=== PATIENT | male | born 1960 | race Caucasian/White ===

== ENCOUNTER 2016-10-21 06:11 | Inpatient (IN) ==
--- NOTE | 2016-10-14 09:09 | EKG Report ---
Stationary ECG Study [facility] Test Date: 10/14/2016 9:09 AM Pat Name: CONSTANCE TATUM Department: Room: Gender: M Enrollment Representative: 10-21-16 : 1960 Requested by: Jamie Munson Order Number: [id number] Reading MD: PAULINE BUNDY Intervals [place] Rate: 54 P: 40 [place]: 182 QRS: 70 QRSD: 95 T: 23 QT: 431 QTc: 418 Interpretive Statements SINUS BRADYCARDIA POSSIBLE INFERIOR MYOCARDIAL INFARCTION, PROBABLY OLD Electronically Signed On 10-18-16 21:43:54 CDT by PAULINE BUNDY [email or web address]
[2016-10-14 09:22] LABS: Basophils % 0.6 % (0.0-0.8); Eosinophils # 0.3 10*3/uL (0.0-0.87); Eosinophils % 4.1 % (0.00-10.9); Hematocrit 41.3 VOL% (42.0-52.0); Hemoglobin 14.5 GM/DL (14.0-18.0); Immature Granulocytes % 0.4 %; Immature Granulocytes Absolute 0.03 #; Lymphocytes # 1.8 10*3/uL (1.4-4.0); Lymphocytes % 26.2 % (21.2-54.2); Mean Corpuscular HGB Conc 35.1 GM/DL (32-36); Mean Corpuscular Hemoglobin 32 PG (27-34); Mean Corpuscular Volume 92.2 FL (87-102); Mean Platelet Volume 8.7 FL (9.6-12.0); Monocytes # 0.9 10*3/uL (0.11-0.8); Monocytes % 12.4 % (1.7-12.7); Neutrophils # 3.9 10*3/uL (1.4-7.4); Neutrophils % 56.3 % (38.7-73.9); Platelet Count 226 T/CUMM (130-400); Red Blood Count 4.48 MC/CUMM (3.8-5.5); Red Cell Distribution Width 12.3 % (9.3-17.3); White Blood Count 6.9 T/CUMM (4-12)
[2016-10-14 09:27] LABS: Apearance,Urine CLEAR (Clear); Bilirubin,Urine Negative (Negative); Blood, Urine Negative (Negative); Glucose,Urine (UA) Negative (Negative); Ketones,Urine Negative (Negative); Mucus,Urine Moderate /LPF (Occasional); Nitrite,Urine Negative (Negative); Protein,Urine Negative; RBC,Urine 1 /HPF (0-4); Urine Color Yellow (Yellow); Urine Specific Gravity 1.019 (1.001-1.035); Urine Urobilinogen < 2.0 EU/DL (0.2-1.0); WBC,Urine 1 /HPF (0-6)
[2016-10-14 09:58] LABS: Calcium 8.8 MG/DL (8.5-10.1); Osmolality,Calculated 284.1 MOS/KG (273-304); Potassium 3.7 MMOL/L (3.5-5.1)
[~2016-10-21 06:11] MED LIST: ALVIMOPAN 12 MG CAPSULE PO ONE; SODIUM PHOSPHATE ENEMA 133 ML BOTTLE RECTAL ONE; cefTRIAXone 1,000 MG in SODIUM CHLORIDE 0.9% 100 ML IV ONE
[2016-10-21] MEDS ORDERED: cefTRIAXone 1,000 MG VIAL ONE (06:13)
[2016-10-21] MEDS ORDERED: SODIUM PHOSPHATE ENEMA 133 ML BOTTLE RECTAL ONE (06:13)
[2016-10-21] MEDS ORDERED: SODIUM CHLORIDE 0.9% 100 ML IV ONE (06:13)
[2016-10-21] MEDS ORDERED: ALVIMOPAN 12 MG CAPSULE ONE (06:14)
[2016-10-21] MEDS ORDERED: LACTATED RINGERS 1,000 ML IV SCH (06:30)
[2016-10-21] MEDS ORDERED: DEXAMETHASONE 10 MG/1 ML VIAL ONE (07:23)
[2016-10-21] MEDS ORDERED: NEOSTIGMINE 10 MG/10 ML VIAL ONE (07:23)
[2016-10-21] MEDS ORDERED: GLYCOPYRROLATE 0.4 MG/2 ML VIAL ONE (07:23)
[2016-10-21] MEDS ORDERED: LIDOCAINE 1% 5 ML VIAL ONE (07:23)
[2016-10-21] MEDS ORDERED: ROCURONIUM 100 MG/10 ML VIAL IV ONE (07:23)
[2016-10-21] MEDS ORDERED: PROPOFOL 200 MG/20 ML VIAL IV ONE (07:23)
[2016-10-21 08:20] LABS: Apearance,Urine CLEAR (Clear); Bilirubin,Urine Negative (Negative); Blood, Urine Small mg/dL (Negative); Glucose,Urine (UA) Negative (Negative); Ketones,Urine Negative (Negative); Mucus,Urine Occasional /LPF (Occasional); Nitrite,Urine Negative (Negative); Protein,Urine Negative; RBC,Urine 14 /HPF (0-4); Squamous Epithelial Cell,Urine Occasional /HPF (0-10); Urine Color Yellow (Yellow); Urine Specific Gravity 1.011 (1.001-1.035); Urine Urobilinogen < 2.0 EU/DL (0.2-1.0); WBC,Urine 4 /HPF (0-6)
[2016-10-21] MEDS ORDERED: ONDANSETRON 4 MG/2 ML VIAL IV PRN ×2 (11:27→12:42)
[2016-10-21] MEDS ORDERED: diphenhydrAMINE 50 MG/1 ML VIAL IV PRN (11:27)
[2016-10-21] MEDS ORDERED: HYDROmorphone PCA 30 MG/30 ML SYRINGE IV SCH (11:30)
--- NOTE | 2016-10-21 11:42 | Operative Note ---
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 We have discussed a robotic assisted radical prostatectomy at length and in detail. Risks, complications, outcomes, sequelae , prognosis and alternative therapy was thoroughly discussed. Patient understood this and agreed to proceed. Patient brought to the operative suite placed table in supine position on the securing padding given a general endotracheal anesthetic. He is then secured to the table in the usual fashion placed in lithotomy position. Patient is then prepared and draped in the usual sterile manner. Formal timeout pain. Patient was then placed in the Trendelenburg position. 22 Maltese Lund was inserted in the bladder left to gravity drainage. Incision is created over the umbilicus. Towel clips were used to elevate the abdominal wall and a Veress needle was used. The abdominal cavity. This is confirmed with the to click and saline drop test. Pneumoperitoneum was obtained. 8 mm trochars placed in the da Iggy camera is passed. The intra- abdominal contents are noted. There is no bowel or vascular injury with access. There is adhesions from the left colon to the left sidewall. #1 #3 ports placed at least 8 cm lateral to the camera port on both sides. This was done under direct vision. Fourth arm was placed 8 cm lateral to the right third arm and then per diem physical therapist assistant port is placed about 4 inches above in between #1 and #2 arm. This is a 12 mm port. The robot was then docked. I broke scrub and went to the console. [place] bipolar forceps using the left and monopolar scissors in the right. Posterior approach is obtained. Incision created in the anterior cul-de-sac. There is a fair amount of adipose tissue. The vas deferens were then identified they were isolated clipped and divided. The seminal vesicles were dissected out of the bed. Care was taken using minimal cautery as this is a nerve sparing. A window in Denonvilliers fascia was performed. Attention was directed to creating the bladder flap. Incision is created lateral to the median umbilical ligaments the anterior abdominal wall to the inguinal canal both sides. The median umbilical ligaments and the divided and the bladder was then dropped down in the pelvis using sharp and blunt dissection. Endopelvic fascia was dissected off and incised. Attachments were divided. On both sides there is a very large cluster of veins in this quite unfortunate for this gentleman because this was a nerve sparing. But these had to be cauterized with the bipolar electrode and hope that the nerve received minimal energy. But this is simply had to be done. Puboprostatics were incised. The dorsal vein was ligated with #1 Vicryl. Attention was then directed to the bladder neck. Junction of the prostate and bladder were identified and this was then incised with cautery anteriorly. Scissors were used to sharply dissect down into the bladder. And the bladder was opened and drained. There is a copious amount of urine output and I suspect that is related to his diuretic that he is taking and was given this morning. Posterior bladder neck was then incised. Lund catheter was deflated and pulled back. In the fourth arm was used with the programs to elevate the posterior prostate. Dissection was continued posteriorly to where the vas deferens and seminal vesicles were. They were pulled up through this wound. Pedicles were taken down sequentially and clipped with Weck clips and divided. The lateral prostatic fascia on both sides was incised and the nerve nerves were dissected off the prostate. Remaining posterior lateral pedicles were again isolated sequentially and clipped with Weck clips and then divided. Prostate was pulled up and the dissection posteriorly was done sharply. There was surprisingly some blood vessels that had to be controlled with bipolar cautery. Dissection continued to the apex of the nerve was dissected off and swept laterally on both sides. Attention was directed to the apex. The dorsal vein was incised. Sharp dissection was continued down to the urethra which was divided anteriorly. The Lund catheter was pulled back the posterior urethra was then divided. Remaining attachments were sharply divided keeping the nerve laterally. Prostate with seminal vesicles and vasa were then placed in a specimen bag. No dissection was done on both sides. Adventitia the external iliac vein was entered leandro tissue swept in the obturator fossa. With teasing of the nose the obturator nerve was identified and kept in view at all times and not injured. Leandro package was then teased out of this and sent for pathologic examination. This was done on both sides. There was no significant bleeding. Urethral vesicle anastomosis was then performed. The posterior bladder neck was attached to the urethral plate with a 2-0 Vicryl. The anastomosis was provided with a barbed 3-0 suture begun at 6:00 and continuing from the 7:00 to 11:00 and 5:00 to 1:00. With tension on the suture and the new Lund catheter there was slight leak anteriorly. With this in mind elected to place a drain. The anastomotic sutures were tied securely. Roberto-Alvarado was then placed in the pelvis. It was laying in the prevesical space and brought out through the fourth arm. The robot was then undocked and the patient was laying flat. Trochars were removed. The assistance port wound this was lengthened with a scalpel and cautery was used to divide the muscles and the fascia. Specimen bag to contain the seminal vesicles and prostate were removed. This wound was closed with a running 0 Monocryl. All wounds were then irrigated and drained and hemostasis checked with cautery and the skin was closed with skin clips on all wounds. The drain was sewn in with 2-0 silk. Sterile dressings were placed on the wounds. The catheter was secured the upper thigh. Patient was then awakened general anesthesia having tolerated this procedure extremely well. All sponge, needle enhancement counts correct 2. Implants: 22 Maltese silicone Lund Anesthesia: GETA Surgeon / Physician: Jamie Munson Estimated blood loss: other (150cc) Specimens: other (Prostate with seminal vesicles, bilateral obturator nodes) Condition: stable Disposition: PACU Results - Labs CBC & BMP: 10/14/16 09:10 10/14/16 09:10 Discharge Plan - Discharge Medications No Action Carvedilol [Coreg] 3.125 mg PO BID Lisinopril 1 tablet PO DAILY hydroCHLOROthiazide [Hydrochlorothiazide] 12.5 mg PO DAILY Aspirin Tab 1 tablet PO DAILY Meloxicam 7.5 mg PO DAILY - Follow Up or Referral - Forms/Instructions
[2016-10-21] MEDS ORDERED: DESFLURANE 1 UNIT/15 MINUTE INH ONE (11:46)
[2016-10-21] MEDS ORDERED: LACTATED RINGERS 1,000 ML IV ONE (11:47)
[2016-10-21] MEDS ORDERED: MIDAZOLAM 2 MG/2 ML VIAL ONE (11:47)
[2016-10-21] MEDS ORDERED: SUFentanil 50 MCG/ML AMP ONE (11:47)
[2016-10-21] MEDS ORDERED: ACETAMINOPHEN 1,000 MG/100 ML VIAL IV ONE (11:47)
[2016-10-21] MEDS ORDERED: HYDROmorphone PCA 30 MG/30 ML SYRINGE IV ONE (11:53)
[2016-10-21] MEDS: HYDROmorphone 2 MG/1 ML VIAL IV PRN ×4 (12:36→13:01)
[2016-10-21] MEDS ORDERED: ONDANSETRON 4 MG/2 ML VIAL ONE (12:37)
[2016-10-21] MEDS ORDERED: HYDROmorphone 2 MG/1 ML VIAL ONE (12:37)
--- NOTE | 2016-10-21 12:55 | Anesthesia Post-Op ---
Anesthesia Post OP - Post Ansesthetic Evaluation Patient seen in post op: Yes Resp: within normal limits CV: within normal limits Mental: within normal limits Temp: within normal limits [id number]-Vq-[id number]: within normal limits Nausea and Vomiting: within normal limits Pain: within normal limits
[2016-10-21] MEDS: SOLIFENACIN 5 MG TABLET PO SCH ×2 (15:28→16:19)
[2016-10-21] MEDS ORDERED: PROMETHAZINE 25 MG/1 ML VIAL IM PRN (18:19)
--- NOTE | 2016-10-21 18:20 | Urology Progress Note ---
Urology - PN: Subj Interval history: Postoperative check. Patient is having significant nausea. Zofran does not seem to be controlling it. I think it is related to the Dilaudid. But he will need that. We will stop the Zofran and offered Phenergan IM. His urine his blood tinged as expected. His vital signs are stable. Exam - Constitutional Vitals: Period Temp Pulse Resp BP Sys/Ceja Pulse Ox Last 24 Hr 97.2 F-98.6 F 59-100 16-20 126-177/65-99 94-100 Results - Labs CBC & BMP: 10/14/16 09:10 10/14/16 09:10
[2016-10-21] MEDS: DEXTROSE 5% NACL 0.45% 1,000 ML IV SCH ×2 (19:00→21:40)
[2016-10-21] MEDS: CARVEDILOL 3.125 MG TABLET PO SCH (21:39)
[2016-10-21] MEDS: LACTULOSE 20 GM/30 ML UDCUP PO SCH (21:39)
[2016-10-21] MEDS: ALVIMOPAN 12 MG CAPSULE PO SCH (21:39)
[2016-10-22] MEDS: DEXTROSE 5% NACL 0.45% 1,000 ML IV SCH ×2 (04:25→12:34)
[2016-10-22 05:50] LABS: Basophils % 0.1 % (0.0-0.8); Hematocrit 36.9 VOL% (42.0-52.0); Hemoglobin 12.7 GM/DL (14.0-18.0); Immature Granulocytes % 0.6 %; Immature Granulocytes Absolute 0.08 #; Lymphocytes # 1.2 10*3/uL (1.4-4.0); Lymphocytes % 8.9 % (21.2-54.2); Mean Corpuscular HGB Conc 34.4 GM/DL (32-36); Mean Corpuscular Hemoglobin 33 PG (27-34); Mean Corpuscular Volume 94.4 FL (87-102); Mean Platelet Volume 9.2 FL (9.6-12.0); Monocytes # 1.4 10*3/uL (0.11-0.8); Neutrophils # 10.9 10*3/uL (1.4-7.4); Neutrophils % 80.4 % (38.7-73.9); Platelet Count 266 T/CUMM (130-400); Red Blood Count 3.91 MC/CUMM (3.8-5.5); Red Cell Distribution Width 12.6 % (9.3-17.3); White Blood Count 13.6 T/CUMM (4-12)
[2016-10-22 06:26] LABS: Calcium 8.5 MG/DL (8.5-10.1); Osmolality,Calculated 282.4 MOS/KG (273-304); Potassium 3.7 MMOL/L (3.5-5.1)
[2016-10-22] MEDS ORDERED: MEPERIDINE 50 MG/1 ML VIAL IM PRN (07:09)
[2016-10-22] MEDS: SOLIFENACIN 5 MG TABLET PO SCH (08:50)
[2016-10-22] MEDS: ALVIMOPAN 12 MG CAPSULE PO SCH ×2 (08:51→20:30)
[2016-10-22] MEDS: CARVEDILOL 3.125 MG TABLET PO SCH ×2 (08:51→20:30)
[2016-10-22] MEDS: LACTULOSE 20 GM/30 ML UDCUP PO SCH ×2 (08:51→20:30)
[2016-10-22] MEDS: LISINOPRIL 20 MG TABLET PO SCH (08:51)
[2016-10-22] MEDS: hydroCHLOROthiazide 12.5 MG CAPSULE PO SCH (08:52)
--- NOTE | 2016-10-22 09:09 | Urology Progress Note ---
Urology - PN: Subj Interval history: Postop day 1. Patient is awake and alert. He is hungry. His wounds are healing well. KAVITHA is minimal and we will remove that. H&H is stable creatinine is normal. Urine is cleared up. Doing well. Progressive care. Exam - Constitutional Vitals: Period Temp Pulse Resp BP Sys/Ceja Pulse Ox Last 24 Hr 97.2 F-99.0 F 59-100 16-20 126-164/64-98 94-100 Results - Labs CBC & BMP: 10/22/16 05:00 10/22/16 05:00
[2016-10-22] MEDS: oxyCODONE/ACETAMINOPHEN 5-325 MG TABLET PO PRN ×3 (12:34→21:26)
[2016-10-23] MEDS: LISINOPRIL 20 MG TABLET PO SCH (08:28)
[2016-10-23] MEDS: SOLIFENACIN 5 MG TABLET PO SCH (08:28)
[2016-10-23] MEDS: CARVEDILOL 3.125 MG TABLET PO SCH ×2 (08:28→20:45)
[2016-10-23] MEDS: LACTULOSE 20 GM/30 ML UDCUP PO SCH ×2 (08:28→20:46)
[2016-10-23] MEDS: hydroCHLOROthiazide 12.5 MG CAPSULE PO SCH (08:28)
[2016-10-23] MEDS: ALVIMOPAN 12 MG CAPSULE PO SCH ×2 (08:28→20:45)
--- NOTE | 2016-10-23 08:54 | Urology Progress Note ---
Urology - PN: Subj Interval history: Had a good night but he developed clot retention and had to be hand irrigated. I am not surprised because when I removed his prostate at the apex dividing the urethra and urethral wanted bleed a little bit more than I usually experience. We do not use cautery in this area because of the nerve sparing and because of the risk of contracture. So we are going to watch him another day. He still not had a bowel movement. His wounds are healing well. Patient may shower. His path report is back. It is a confined cancer negative nodes. Exam - Constitutional Vitals: Period Temp Pulse Resp BP Sys/Ceja Pulse Ox Last 24 Hr 97.8 F-98.4 F 60-98 16-18 138-157/70-83 93-98 Results - Labs CBC & BMP: 10/22/16 05:00 10/22/16 05:00
[2016-10-23] MEDS: oxyCODONE/ACETAMINOPHEN 5-325 MG TABLET PO PRN ×3 (10:33→20:50)
[2016-10-24] MEDS: oxyCODONE/ACETAMINOPHEN 5-325 MG TABLET PO PRN (06:44)
[2016-10-24] MEDS: ALVIMOPAN 12 MG CAPSULE PO SCH (08:33)
[2016-10-24] MEDS: SOLIFENACIN 5 MG TABLET PO SCH (08:33)
[2016-10-24] MEDS: CARVEDILOL 3.125 MG TABLET PO SCH (08:33)
[2016-10-24] MEDS: LISINOPRIL 20 MG TABLET PO SCH (08:33)
[2016-10-24] MEDS: LACTULOSE 20 GM/30 ML UDCUP PO SCH (08:33)
[2016-10-24] MEDS: hydroCHLOROthiazide 12.5 MG CAPSULE PO SCH (08:33)
[2016-10-24 12:06] VITALS: BP 146/97
--- NOTE | 2016-10-24 12:15 | Discharge Summary ---
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 He had a little bit of bleeding but not uncommon to the nerve sparing technique. He is urethra wanted to bleed a little bit more so we have had to watch him an extra day. But he is tolerating regular diet and his wounds are healing well is ambulating without difficulty. Pathology report revealed confined cancer with negative margins and negative nodes. We will discharge him now be followed up in 2 weeks by me and he will come see my nurse on 10/30/16 for catheter removal. - Time spent with patient Time with patient DS: Greater than 30 minutes Diagnosis - Discharge Diagnosis (1) Adenocarcinoma of prostate Status: Acute Discharge Plan - Discharge Data Disposition: Disch To Home/Self Care Condition at Discharge: Stable Discharge Diet: heart healthy Activity: no lifting, other (Minimal, walking on flat ground encouraged) Hygiene: no restrictions Weight Bearing at Discharge: full weight bearing Driving: not until seen by doctor Contact your physician if you experience:: fever over 101, Redness or swelling, Bleeding, pain uncontrolled by pain medications - Discharge Medications New oxyCODONE/ACETAMINOPHEN 5-325 [Percocet 5-325] 1 tablet PO Q6H PRN #0 tablet PRN Reason: Pain Moderate (4-7) Solifenacin [Vesicare] 5 mg PO DAILY tablet oxyCODONE/ACETAMINOPHEN 5-325 [Percocet 5-325] 2 tablet PO Q4H PRN #0 tablet PRN Reason: Pain Moderate (4-7) Continue Carvedilol [Coreg] 3.125 mg PO BID Lisinopril 1 tablet PO DAILY hydroCHLOROthiazide [Hydrochlorothiazide] 12.5 mg PO DAILY Discontinued Aspirin Tab 1 tablet PO DAILY Meloxicam 7.5 mg PO DAILY - Follow Up or Referral - Forms/Instructions Exam - Constitutional Vitals: Period Temp Pulse Resp BP Sys/Ceja Pulse Ox Last 24 Hr 97.1 F-98.9 F 63-81 18-20 140-162/70-97 93-97 DS: Provider Date of admission: 10/21/16 11:27 Primary care physician: Molly Rodriguez Attending physician on admission: Jamie Munson MD Discharging clinician: Jamie Munson MD
== END 2016-10-24 13:30 | disposition home or self-care (01) | DRG 708 ==
LOC: N.OR 06:11 → N.SDSINP 06:12 → N.5E 11:27
PROVIDERS: ADMIT Urology; ATTEND Urology